=== PATIENT | female | born 1955 | race Caucasian/White ===

== ENCOUNTER 2023-09-03 14:03 | Emergency (ER) | payer MEDICARE, BC ==
[~2023-09-03] VITALS: Ht 170.2 cm; Wt 70.3 kg
[2023-09-03 15:03] LABS: BASOPHILS % (AUTO) 0.7 % (0.0-2.0); EOSINOPHILS # (AUTO) 0.3 K/uL (0.0-0.7); EOSINOPHILS % (AUTO) 4.1 % (0.0-7.0); HEMATOCRIT 40.7 % (31.2-41.9); HEMOGLOBIN 13.6 g/dL (10.9-14.3); LYMPHOCYTES # (AUTO) 2.4 K/uL (0.8-4.8); LYMPHOCYTES % (AUTO) 36.5 % (20.5-51.5); MEAN CORPUSCULAR HEMOGLOBIN 31.1 uug (24.7-32.8); MEAN CORPUSCULAR HGB CONC 34 g/dL (32.3-35.6); MEAN CORPUSCULAR VOLUME 92.8 fL (75.5-95.3); MONOCYTES # (AUTO) 0.4 K/uL (0.1-1.30); MONOCYTES % (AUTO) 6.4 % (0.0-11.0); NEUTROPHILS # (AUTO) 3.5 K/uL (1.8-8.9); NEUTROPHILS % (AUTO) 52.3 % (38.5-71.5); PLATELET COUNT (AUTO) 230 K/uL (179-408); RED BLOOD CELL COUNT(AUTO) 4.38 MIL/uL (3.63-4.92); RED CELL DISTRIBUTION WIDTH 17.2 % (12.3-17.7); WHITE BLOOD COUNT (AUTO) 6.6 K/uL (3.8-11.8)
[2023-09-03 15:08] LABS: DIFFERENTIAL COMMENT 1
[2023-09-03 15:14] LABS: CALCIUM 8.9 mg/dL (8.5-10.1); CARBON DIOXIDE 22 mmol/L (21-32); CHLORIDE 109 mmol/L (98-107); CREATININE 0.8 mg/dL (0.6-1.3); GLUCOSE 108 mg/dL (74-106); POTASSIUM 5.5 mmol/L (3.5-5.1); SODIUM SERUM 143 mmol/L (136-145); UREA NITROGEN, BLOOD 12 mg/dL (7-18)
[2023-09-03 15:20] LABS: AMMONIA < 10 umol/L (11-32)
[2023-09-03 15:23] LABS: ALANINE AMINOTRANSFERASE 23 U/L (14-59); ALBUMIN 3.6 g/dL (3.4-5.0); ALKALINE PHOSPHATASE 91 U/L (50-136); ASPARTATE AMINOTRANSFERASE 32 U/L (15-37); BILIRUBIN,DIRECT 0.2 mg/dL (0.0-0.2); BILIRUBIN,TOTAL 0.3 mg/dL (0.2-1.0)
[2023-09-03 15:25] LABS: ACETAMINOPHEN < 2.0 ug/mL (10-30); THYROID STIMULATING HORMONE 0.389 mIU/mL (0.358-3.740)
[2023-09-03 16:05] LABS: ETHANOL 297 MG/DL (0-10)
[2023-09-03 16:17] LABS: *BILIRUBIN,URIN NEGATIVE (NEGATIVE); *CLARITY,URINE CLEAR (CLEAR); *COLOR,URINE YELLOW (YELLOW); *KETONES,URINE NEGATIVE (NEGATIVE); *PROTEIN,URINE NEGATIVE (NEGATIVE); *UROBILINOGEN,URINE 0.2 E.U./dl (NORMAL); LEUKOCYTE ESTERASE ,URINE NEGATIVE (NEGATIVE); NITRITE, URINE NEGATIVE (NEGATIVE); PH,URINE 5.5 (5.0-8.0); UGLUCOSE NEGATIVE (NEGATIVE)
[2023-09-03 16:21] LABS: *BLOOD, URINE TRACE (NEGATIVE)
[2023-09-03 16:23] LABS: *AMPHETAMINE, URINE NEGATIVE (NEGATIVE); *BARBITURATE, URINE NEGATIVE (NEGATIVE); *BENZODIAZEPINE, URINE POSITIVE (NEGATIVE); *CANNABINOID, URINE NEGATIVE (NEGATIVE); *COCCAINE, URINE NEGATIVE (NEGATIVE); *OPIATE, URINE NEGATIVE (NEGATIVE); *PHENCYCLIDINE SCREEN,URINE NEGATIVE (NEGATIVE)
[2023-09-03 16:28] LABS: FENTANYL, URINE NEGATIVE (NEGATIVE)
[2023-09-03 16:36] LABS: BACTERIA,URINE MODERATE /HPF (NONE SEEN); RBC,URINE 0-3 /HPF (0-3); SQUAMOUS EPITHELIAL CELL,UR FEW /HPF (NONE SEEN); WBC,URINE 0-3 /HPF (0-3)
[2023-09-03 16:59] VITALS: BP 118/60; O2SAT 98
== END 2023-09-03 17:00 ==
LOC: ER 14:06
DX: Z04.1 Encounter for examination and observation following transport accident (principal); M54.2 Cervicalgia; R51.9 Headache, unspecified; V89.2XXA Person injured in unspecified motor-vehicle accident, traffic, initial encounter; Y93.89 Activity, other specified; Y92.89 Other specified places as the place of occurrence of the external cause; Y99.8 Other external cause status
CPT/HCPCS: 36415; 70450; 71045; 72125; 83605; 84443; 84484; 85025; 85730; 87040; 93005; A4606; A4663; G0480

== ENCOUNTER 2025-04-04 14:28 | Emergency (ER) | payer MEDICARE, BC ==
[~2025-04-04] VITALS: Ht 170.2 cm; Wt 76.2 kg
[2025-04-04] MEDS ORDERED: AMLO-212 PO (14:44)
[2025-04-04] MEDS ORDERED: ROSU40TA23 PO (14:44)
[2025-04-04] MEDS ORDERED: IRBE1TAB33 PO (14:44)
[2025-04-04] MEDS ORDERED: TRAZ-252 PO (14:44)
[2025-04-04] MEDS ORDERED: HYDR25TA4 PO (14:44)
[2025-04-04 15:24] LABS: PLATELET COUNT (AUTO) 199 K/uL (179-408); RED BLOOD CELL COUNT(AUTO) 3.50 MIL/uL (3.63-4.92); RED CELL DISTRIBUTION WIDTH 13.4 % (12.3-17.7); WHITE BLOOD COUNT (AUTO) 3.7 K/uL (3.8-11.8)
[2025-04-04 15:33] LABS: CREATININE 0.9 mg/dL (0.6-1.3); SODIUM SERUM 138 mmol/L (136-145); UREA NITROGEN, BLOOD 12 mg/dL (7-18)
[2025-04-04] MEDS: IV NORMAL SALINE 1000 ML BAG IV ONE (15:35)
[2025-04-04 15:39] LABS: ASPARTATE AMINOTRANSFERASE < 5 U/L (15-37); TOTAL PROTEIN, SERUM 7.6 g/dL (6.4-8.2)
[2025-04-04 15:50] LABS: PLATELET COUNT (AUTO) 270 K/uL (179-408); RED BLOOD CELL COUNT(AUTO) 4.43 MIL/uL (3.63-4.92); RED CELL DISTRIBUTION WIDTH 13.3 % (12.3-17.7); WHITE BLOOD COUNT (AUTO) 10.0 K/uL (3.8-11.8)
[2025-04-04] MEDS ORDERED: IV NORMAL SALINE 250 ML IV ONE (16:08)
[2025-04-04] MEDS ORDERED: IOHEXOL 300MG/ML 100 ML INFUS..BTL ONE (16:08)
[2025-04-04] MEDS ORDERED: SWABABLE VALVE TRANSFER SET EA MC ONE (16:08)
[2025-04-04 18:30] VITALS: BP 124/59
[2025-04-04] MEDS ORDERED: PRED20TA PO (21:18)
[2025-04-05 00:14] VITALS: BP 124/59; TEMP 98; O2SAT 97
== END 2025-04-04 21:30 | disposition home or self-care (01) ==
LOC: ER 14:28
DX: S05.11XA Contusion of eyeball and orbital tissues, right eye, initial encounter (principal); G89.29 Other chronic pain; E78.5 Hyperlipidemia, unspecified; I50.9 Heart failure, unspecified; Z79.52 Long term (current) use of systemic steroids; Z79.899 Other long term (current) drug therapy; Z53.29 Procedure and treatment not carried out because of patient's decision for other reasons; W01.0XXA Fall on same level from slipping, tripping and stumbling without subsequent striking against object, initial encounter; Y93.89 Activity, other specified; Y92.89 Other specified places as the place of occurrence of the external cause; Y99.9 Unspecified external cause status
CPT/HCPCS: 99285; 70450; 96360; 71045; 96361; 80076; 80048; 83880; 85025 ×2; 85730; 86850; 86900; 86901; 84484; 36415; 70491; 93005; 85018; Q9967; J7040; A4606; A4663